=== PATIENT | male | born 1980 | race Caucasian/White ===

== ENCOUNTER 2017-11-23 14:06 | Emergency (ER) | payer MEDICARE, MEDICAID ==
[~2017-11-23] VITALS: Ht 180.3 cm; Wt 81.0 kg
[~2017-11-23 14:06] MED LIST: APTIOM400 MG PO; ATIVAN1 MG PO; BACTRIM DS1 TAB PO; CARBATROL300 MG PO; CELEXA20 M1 PO; CIPRO HC AS; CLONAZEPAM1 MG PO; CORTISPORIN OTI10 ML AS; DOXYCYCL HYC100 MG PO; KEPPRA250 MG; LOPRESSOR 550 MG/TAB PO; LORCET 5-325 MG1 TAB PO; LORTAB 10-325 M1 TAB PO; LORTAB 5/3255 MG PO; LORTAB5 PO; LYRICA150 MG PO; LYRICA25 MG PO; Lyrica PO; METO50TA52 PO; NAPROSYN500 MG PO; TEGRETOL PO; TEGRETOL200 MG PO; TOPAMAX25 MG OR; TRAMADOL HCL50 MG PO; ULTRAM50 MG OR; VIMPAT50 MG PO; ZOFRAN4 MG/TAB PO; [UNRECOGNIZED DRUG - OTHER] OR; [UNRECOGNIZED DRUG - OTHER] PO
[2017-11-23] MEDS ORDERED: METOPROL TAR25 MG PO (14:19)
[2017-11-23] MEDS ORDERED: ATORVASTATIN CA80 MG PO (14:20)
[2017-11-23] MEDS ORDERED: LYRICA50 MG PO (14:20)
[2017-11-23] MEDS ORDERED: CARBAMAZEPIN200 MG PO (14:20)
[2017-11-23] MEDS ORDERED: APTIOM400 MG PO (14:21)
[2017-11-23] MEDS ORDERED: CLONAZEPAM1 MG PO (14:21)
[2017-11-23] MEDS ORDERED: LORTAB 5/3255 MG PO (14:21)
[2017-11-23 15:15] LABS: HEMATOCRIT 45.7 % (39.0-50.0); HEMOGLOBIN 16.4 g/dl (14.0-18.0); IMMATURE GRANULOCYTES 0.4 % (0.0-1.0); MEAN CELL VOLUME 87.4 fL CALC (80.0-100.0); MEAN CORPUSCULAR HGB 31.4 pG CALC (26.0-32.0); MEAN CORPUSCULAR HGB CONC 35.9 g/L CALC (32.0-36.0); NEUT# 5.39 thou/uL (1.82-7.42); RED BLOOD COUNT 5.23 mill/uL (4.70-6.10); RED CELL DISTRI WIDTH 11.9 % (11.5-15.5)
[2017-11-23 15:34] LABS: ALBUMIN 4.7 g/dL (3.2-5.0); ALKALINE PHOSPHATASE 98 u/l (38-126); ANION GAP 19 (6-22 (CALC)); BILIRUBIN, TOTAL 0.6 mg/dL (0.0-1.4); BUN 8 mg/dL (9-20); BUN/CREATININE RATIO 10 (12-20 (CALC)); CARBON DIOXIDE 23 mmol/l (22-30); CHLORIDE 100 mmol/l (95-108); CREATININE 0.8 mg/dL (0.7-1.3); GFR > 60 ML/MIN (>=60 (CALC)); GFR FOR AFR.AMER. > 60 ML/MIN (>=60 (CALC)); LIPASE 36 u/l (23-300); POTASSIUM 3.9 mmol/l (3.5-5.1); SGOT/AST 47 u/l (17-59); SGPT/ALT 62 u/l (21-72); SODIUM 138 mmol/l (137-146)
[2017-11-23 17:06] LABS: URINE BILIRUBIN - DIPSTICK NEGATIVE (NEGATIVE); URINE BLOOD DIPSTICK NEGATIVE (NEGATIVE); URINE COLOR YELLOW; URINE GLUCOSE - DIPSTICK NEGATIVE (NEGATIVE); URINE KETONE 15 mg/dL (NEGATIVE); URINE LEUK ESTERASE NEGATIVE (NEGATIVE); URINE NITRITE - DIPSTICK NEGATIVE (Negative); URINE PH 7.5 (4.5-8.0); URINE PROTEIN - DIPSTICK TRACE mg/dL (NEG-TRACE); URINE UROBILINOGEN - DIPSTICK 0.2 E.U./dL (0.2)
[2017-11-23 17:09] LABS: COCAINE NEGATIVE (NEGATIVE); METHADONE NEGATIVE (NEGATIVE); TETRAHYDROCANNABIONOL POSITIVE (NEGATIVE)
[2017-11-23 17:10] LABS: BARBITURATES NEGATIVE (NEGATIVE); OXCYCODONE NEGATIVE (NEGATIVE); TRICYLIC ANTIDEPRESSANTS NEGATIVE (NEGATIVE); URINE CLARITY CLEAR
[2017-11-23 17:30] VITALS: BP 158/96
[2017-11-23] MEDS ORDERED: BENTYL10 MG PO (18:18)
[2017-11-23] MEDS ORDERED: TORADOL PO (18:18)
[2017-11-23 19:05] LABS: C. DIFFICILE TOXIN A&B NEGATIVE (NEGATIVE)
== END 2017-11-23 18:35 | disposition home or self-care (01) ==
LOC: ED 14:06
PROVIDERS: Emergency Medicine
DX: R10.84 Generalized abdominal pain (principal); R19.7 Diarrhea, unspecified; I10 Essential (primary) hypertension; G40.909 Epilepsy, unspecified, not intractable, without status epilepticus
CPT/HCPCS: Q9967

== ENCOUNTER 2021-01-22 14:18 | Emergency (ER) | payer MEDICARE ==
[~2021-01-22] VITALS: Ht 180.3 cm; Wt 81.0 kg
[~2021-01-22 14:18] MED LIST changes: +ATORVASTATIN CA80 MG PO; +BENTYL10 MG PO; +CARBAMAZEPIN200 MG PO; +LYRICA50 MG PO; +METOPROL TAR25 MG PO; +TORADOL PO
[2021-01-22 16:26] LABS: HEMATOCRIT 46.7 % (39.0-50.0); IMMATURE GRANULOCYTES 0.2 % (0.0-5.0); MEAN CELL VOLUME 88.1 fL CALC (80.0-100.0); MEAN CORPUSCULAR HGB 30.6 pG CALC (26.0-32.0); MEAN CORPUSCULAR HGB CONC 34.7 g/dL CAL (32.0-36.0); NEUT# 6.33 thou/uL (1.82-7.42); RED BLOOD COUNT 5.3 mill/uL (4.70-6.10); RED CELL DISTRI WIDTH 11.8 % (11.5-15.5)
[2021-01-22 16:29] LABS: HEMOGLOBIN 16.2 g/dl (14.0-18.0)
[2021-01-22 16:43] LABS: ALBUMIN 5.3 g/dL (3.2-5.0); ALKALINE PHOSPHATASE 93 u/l (38-126); ANION GAP 18 (6-22 (CALC)); BILIRUBIN, TOTAL 0.8 mg/dL (0.0-1.4); BUN 16 mg/dL (9-20); BUN/CREATININE RATIO 14 (12-20 (CALC)); CARBON DIOXIDE 26 mmol/l (22-30); CHLORIDE 95 mmol/l (95-108); CREATININE 1.2 mg/dL (0.7-1.3); GFR > 60 ML/MIN (>=60 (CALC)); GFR FOR AFR.AMER. > 60 ML/MIN (>=60 (CALC)); SGOT/AST 77 u/l (17-59); SODIUM 135 mmol/l (137-146); TOTAL PROTEIN 9.9 g/dL (6.3-8.2)
[2021-01-22] MEDS ORDERED: CLEOCIN300 MG PO (17:29)
[2021-01-22] MEDS ORDERED: MOTRIN800 MG PO (17:29)
[2021-01-22 17:32] VITALS: BP 157/109
== END 2021-01-22 17:40 | disposition home or self-care (01) ==
LOC: ED 14:18
DX: L72.3 Sebaceous cyst (principal); G89.29 Other chronic pain; I10 Essential (primary) hypertension; G40.909 Epilepsy, unspecified, not intractable, without status epilepticus; E78.5 Hyperlipidemia, unspecified; F17.200 Nicotine dependence, unspecified, uncomplicated